=== PATIENT | female | born 1960 | race Caucasian/White ===

== ENCOUNTER 2020-01-16 13:46 | Emergency (ER) | payer OTHER ==
--- NOTE | 2020-01-16 14:00 | ERPHSYRPT ---
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 Patient noticed a sore throat last night and had her usual chronic cough that she has secondary to her lisinopril. However, the dizziness came on this morning and has persisted. Patient denies chest pain she denies shortness of breath. Patient had a recent cardiac work-up including a negative carotid artery Doppler study per patient. Her cardiac work-up was also negative per patient report. She denies head trauma. She is never had anything like this before. Patient has no abdominal pain no shortness of breath and has no urinary tract infection symptoms. Are no new medicines that she is taking Timing/Duration: today, yesterday Character of Deficits: none Deficits: no difficulties Baseline/Normal Cognition: alert oriented x 3 Current Cognition: alert oriented x 3 Baseline Gait: walks w/o assistance Associated Symptoms: denies symptoms Allergies/Adverse Reactions: No Known Drug Allergies Allergy (Verified 01/16/20 14:04) Home Medications: Amlodipine Besylate 1 tab PO HS 01/16/20 [History] Lisinopril 10 mg [Zestril 10 MG] 1 tab PO HS 01/16/20 [History] Pravastatin Sodium 1 tab PO DAILY 01/16/20 [History] Hx Tetanus, Diphtheria Vaccination/Date Given: Yes Hx Influenza Vaccination/Date Given: No Hx Pneumococcal Vaccination/Date Given: No Travel Risk - International Travel Have you traveled outside of the country in past 3 weeks: No Have you or anyone close to you been diagnosed with or: No Do your reside in a community with a known COVID-19 case?: Yes If Yes where:: [place] - Review of Systems Constitutional: No Symptoms Eyes: No Symptoms Ears, Nose, & Throat: No Symptoms Respiratory: No Symptoms Cardiac: No Symptoms Abdominal/Gastrointestinal: No Symptoms Genitourinary Symptoms: No Symptoms Musculoskeletal: No Symptoms Skin: No Symptoms Neurological: Dizziness Psychological: No Symptoms Endocrine: No Symptoms Hematologic/Lymphatic: No Symptoms Immunological/Allergic: No Symptoms All Other Systems: Reviewed and Negative - Past Medical History Pertinent Past Medical History: No Neurological History: No Pertinent History ENT History: No Pertinent History Cardiac History: Hypertension Respiratory History: No Pertinent History Endocrine Medical History: No Pertinent History Musculoskeletal History: Fractures, Osteoarthritis GI Medical History: Other (gastric bypass surgery) History: No Pertinent History Psycho-Social History: Depression Female Reproductive Disorders: Cervical Cancer Other Medical History: FX ALEJANDRA WRISTS WITH ORIF, CALCANEAL FX RIGHT REQUIRING ORIF, AND RECENTLY FX STERNUM AND THREE RIBS. - Past Surgical History Past Surgical History: Yes Neuro Surgical History: No Pertinent History Cardiac: No Pertinent History Respiratory: No Pertinent History Gastrointestinal: Cholecystectomy, Other Genitourinary: No Pertinent History Musculoskeletal: Orthopedic Surgery Female Surgical History: Hysterectomy Other Surgical History: HEEL,GASYRIC BYPASS - Social History Smoking Status: Never smoker Exposure to second hand smoke: No Drug Use: none Patient Lives Alone: No - Nursing Vital Signs Nursing Vital Signs: Initial Vital Signs Temperature 97.2 F 01/16/20 14:08 Pulse Rate 64 01/16/20 14:08 Respiratory Rate 18 01/16/20 14:08 Blood Pressure 154/87 01/16/20 14:08 O2 Sat by Pulse Oximetry 100 01/16/20 14:08 Pain Scale Pain Intensity 0 - Bennett Coma Scale Best Eye Response (Bennett): (4) open spontaneously Best Verbal Response ([place]): (5) oriented Best Motor Response (Bennett): (6) obeys commands [place] Total: 15 - Physical Exam General Appearance: no apparent distress, alert, anxiety Eye Exam: bilateral eye: normal inspection, PERRL, EOMI Ears, Nose, Throat Exam: normal ENT inspection, TMs normal, pharynx normal, moist mucous membranes Neck Exam: normal inspection, non-tender, supple, full range of motion Respiratory: normal breath sounds, lungs clear, airway intact, No chest tenderness, No respiratory distress Cardiovascular: regular rate/rhythm, normal heart sounds, normal peripheral pulses Gastrointestinal: soft, normal bowel sounds, No tenderness Pelvic Exam: not done Rectal Exam: not done Back Exam: normal inspection, normal range of motion, No CVA tenderness, No vertebral tenderness Extremity Exam: normal inspection, normal range of motion, pelvis stable Mental Status: alert, oriented x 3, cooperative clear coat sprayer Exam: normal hearing, normal speech, PERRL, tongue midline Coordination/Gait: normal finger to nose, normal gait, normal cerebellar function Motor/Sensory: no motor deficit, no sensory deficit Skin Exam: normal color, warm, dry SpO2 Interpretation: normal O2 Delivery: Room Air - Course Nursing assessment & vital signs reviewed: Yes EKG Interpreted by Me: RATE (65), Sinus Rhythm, NORMAL AXIS, NORMAL INTERVALS, NORMAL QRS, Other (No comparison EKG) Ordered Tests: Active Orders 24 hr Category Date Time Status EKG-ER Only STAT Care 01/16/20 14:41 Active IV Insertion STAT Care 01/16/20 14:41 Active HEAD WITHOUT CONTRAST [CT] Stat Exams 01/16/20 14:41 Completed CBC W DIFF Stat Lab 01/16/20 15:00 Completed CMP Stat Lab 01/16/20 15:00 Completed CULTURE,URINE Stat Lab 01/16/20 15:30 Received TROPONIN Q3H Lab 01/16/20 15:00 Completed TROPONIN Q3H Lab 01/16/20 17:45 Ordered TROPONIN Q3H Lab 01/16/20 20:45 Ordered TROPONIN Q3H Lab 01/16/20 23:45 Ordered TROPONIN Q3H Lab 01/17/20 02:45 Ordered UA W/RFX UR CULTURE Stat Lab 01/16/20 15:30 Completed Urine Triage Profile Stat Lab 01/16/20 14:42 Completed Medication Summary Discontinued Medications Generic Name Dose Route Start Last Admin Trade Name Freq PRN Reason Stop Dose Admin Sodium Chloride 1,000 mls @ 999 mls/hr 01/16/20 14:41 01/16/20 16:24 Sodium Chloride 0.9% 1000 Ml IV 01/16/20 15:41 Infused .Q1H1M STA Infusion Sodium Chloride Confirm 01/16/20 15:20 Sodium Chloride 0.9% 1000 Ml Administered 01/16/20 15:21 Dose 1,000 mls @ ud .ROUTE .STK-MED ONE Trimethoprim/Sulfamethoxazole 1 tab 01/16/20 16:30 Bactrim Ds Tablet PO 01/16/20 16:31 STAT STA Lab/Rad Data: Laboratory Result Diagrams 01/16/20 15:00 01/16/20 15:00 Laboratory Results 01/16/20 01/16/20 01/16/20 Range/Units Unknown 15:30 15:00 WBC (4.0-10.5) K/mm3 RBC (4.1-5.4) M/mm3 Hgb (12.0-16.0) gm/dl Hct (35-47) % MCV (78-100) fl MCH (26-32) pg MCHC (32-36) g/dl RDW (11.5-14.0) % Plt Count (150-450) K/mm3 MPV (7.5-11.0) fl Gran % (36.0-66.0) % Eos # (Auto) (0-0.5) Absolute Lymphs (auto) (1.0-4.6) Absolute Monos (auto) (0.0-1.3) Lymphocytes % (24.0-44.0) % Monocytes % (0.0-12.0) % Eosinophils % (0.00-5.0) % Basophils % (0.0-0.4) % Absolute Granulocytes (1.4-6.9) Basophils # (0-0.4) Sodium (137-145) mmol/L Potassium (3.5-5.1) mmol/L Chloride (98-107) mmol/L Carbon Dioxide (22-30) mmol/L Anion Gap (5-15) MEQ/L BUN (7-17) mg/dL Creatinine (0.52-1.04) mg/dL Estimated GFR ML/MIN Glucose (74-106) mg/dL Calcium (8.4-10.2) mg/dL Total Bilirubin (0.2-1.3) mg/dL AST (14-36) U/L ALT (0-35) U/L Alkaline Phosphatase (38-126) U/L Troponin I < 0.012 (0.000-0.034) ng/mL Serum Total Protein (6.3-8.2) g/dL Albumin (3.5-5.0) g/dL Urine Color STRAW (YELLOW) Urine Appearance CLEAR (CLEAR) Urine pH 6.0 (5-6) Ur Specific [place] 1.008 (1.005-1.025) Urine Protein NEGATIVE (Negative) Urine Ketones NEGATIVE (NEGATIVE) Urine Blood NEGATIVE (0-5) Jan/ul Urine Nitrite NEGATIVE (NEGATIVE) Urine Bilirubin NEGATIVE (NEGATIVE) Urine Urobilinogen NEGATIVE (0-1) mg/dL Ur Leukocyte Esterase MODERATE (NEGATIVE) Urine WBC (Auto) 6-10 (0-5) /HPF Urine RBC (Auto) NONE (0-2) /HPF U Epithel Cells (Auto) RARE (FEW) /HPF Urine Bacteria (Auto) RARE (NEGATIVE) /HPF Urine Mucus (Auto) SLIGHT (NEGATIVE) /HPF Urine Culture Reflexed YES (NO) Urine Glucose NEGATIVE (NEGATIVE) mg/dL Urine Opiates Level (NEGATIVE) Ur Methadone (NEGATIVE) Urine Barbiturates (NEGATIVE) Ur Phencyclidine (PCP) (NEGATIVE) Urine Amphetamine (NEGATIVE) U Benzodiazepine Level (NEGATIVE) Urine Cocaine (NEGATIVE) Urine Marijuana (THC) (NEGATIVE) Influenza Type A Ag NEGATIVE (NEGATIVE) Influenza Type B Ag NEGATIVE (NEGATIVE) RSV (PCR) NEGATIVE (Negative) 01/16/20 01/16/20 01/16/20 Range/Units 15:00 15:00 14:42 WBC 4.5 (4.0-10.5) K/mm3 RBC 4.03 L (4.1-5.4) M/mm3 Hgb 11.0 L (12.0-16.0) gm/dl Hct 34.1 L (35-47) % MCV 84.6 (78-100) fl MCH 27.3 (26-32) pg MCHC 32.3 (32-36) g/dl RDW 15.8 H (11.5-14.0) % Plt Count 157 (150-450) K/mm3 MPV 13.1 H (7.5-11.0) fl Gran % 59.1 (36.0-66.0) % Eos # (Auto) 0.11 (0-0.5) Absolute Lymphs (auto) 1.29 (1.0-4.6) Absolute Monos (auto) 0.44 (0.0-1.3) Lymphocytes % 28.4 (24.0-44.0) % Monocytes % 9.7 (0.0-12.0) % Eosinophils % 2.4 (0.00-5.0) % Basophils % 0.4 (0.0-0.4) % Absolute Granulocytes 2.68 (1.4-6.9) Basophils # 0.02 (0-0.4) Sodium 142 (137-145) mmol/L Potassium 4.2 (3.5-5.1) mmol/L Chloride 107 (98-107) mmol/L Carbon Dioxide 28 (22-30) mmol/L Anion Gap 12.0 (5-15) MEQ/L BUN 15 (7-17) mg/dL Creatinine 0.61 (0.52-1.04) mg/dL Estimated GFR > 60.0 ML/MIN Glucose 92 (74-106) mg/dL Calcium 9.1 (8.4-10.2) mg/dL Total Bilirubin 0.70 (0.2-1.3) mg/dL AST 51 H (14-36) U/L ALT 58 H (0-35) U/L Alkaline Phosphatase 128 H (38-126) U/L Troponin I (0.000-0.034) ng/mL Serum Total Protein 7.3 (6.3-8.2) g/dL Albumin 3.9 (3.5-5.0) g/dL Urine Color (YELLOW) Urine Appearance (CLEAR) Urine pH (5-6) Ur Specific [place] (1.005-1.025) Urine Protein (Negative) Urine Ketones (NEGATIVE) Urine Blood (0-5) Jan/ul Urine Nitrite (NEGATIVE) Urine Bilirubin (NEGATIVE) Urine Urobilinogen (0-1) mg/dL Ur Leukocyte Esterase (NEGATIVE) Urine WBC (Auto) (0-5) /HPF Urine RBC (Auto) (0-2) /HPF U Epithel Cells (Auto) (FEW) /HPF Urine Bacteria (Auto) (NEGATIVE) /HPF Urine Mucus (Auto) (NEGATIVE) /HPF Urine Culture Reflexed (NO) Urine Glucose (NEGATIVE) mg/dL Urine Opiates Level NEGATIVE (NEGATIVE) Ur Methadone NEGATIVE (NEGATIVE) Urine Barbiturates NEGATIVE (NEGATIVE) Ur Phencyclidine (PCP) NEGATIVE (NEGATIVE) Urine Amphetamine NEGATIVE (NEGATIVE) U Benzodiazepine Level NEGATIVE (NEGATIVE) Urine Cocaine NEGATIVE (NEGATIVE) Urine Marijuana (THC) NEGATIVE (NEGATIVE) Influenza Type A Ag (NEGATIVE) Influenza Type B Ag (NEGATIVE) RSV (PCR) (Negative) - Progress Progress: improved, re-examined Progress Note: 01/16/20 16:45 CAT scan of the head reveals no acute intracranial process. Counseled pt/family regarding: lab results, diagnosis, need for follow-up, rad results - Departure Departure Disposition: Home Clinical Impression: Dizziness, Urinary tract infection Condition: Stable Critical Care Time: No Referrals: VANDA PATEL CONSULTING PRACTICE MANAGER [Primary Care Provider] - Additional Instructions: Drink plenty of fluids. Follow-up with primary care physician for persistent symptoms. Take your medication as prescribed Prescriptions: Ciprofloxacin [Cipro 500 MG] 500 mg PO BID #14 tablet
[2020-01-16] MEDS ORDERED: Sodium Chloride 0.9% 1000 ML 1,000 ML IV STA (14:41)
[2020-01-16 15:08] LABS: Absolute Neutrophil Ct (ANC) 2.68 (1.4-6.9); BASOPHIL % 0.4 % (0.0-0.4); Basophil (Absolute #) 0.02 (0-0.4); Eosinophil % 2.4 % (0.00-5.0); Eosinophil (Absolute #) 0.11 (0-0.5); Hematocrit 34.1 % (35-47); Lymphocyte (Absolute #) 1.29 (1.0-4.6); Lymphocytes % 28.4 % (24.0-44.0); Mean Cell Volume 84.6 fl (78-100); Mean Corpuscular Hemoglobin 27.3 pg (26-32); Mean Corpuscular Hgb Concent. 32.3 g/dl (32-36); Mean Platelet Volume 13.1 fl (7.5-11.0); Monocyte (Absolute #) 0.44 (0.0-1.3); Monocytes % 9.7 % (0.0-12.0); Neutrophil % 59.1 % (36.0-66.0); Platelet Count 157 K/mm3 (150-450); Red Blood Count 4.03 M/mm3 (4.1-5.4); Red Cell Distribution Width 15.8 % (11.5-14.0); White Blood Count 4.5 K/mm3 (4.0-10.5)
[2020-01-16] MEDS ORDERED: Sodium Chloride 0.9% 1000 ML 1,000 ML ONE (15:20)
[2020-01-16 15:21] LABS: ALBUMIN 3.9 g/dL (3.5-5.0); ALKALINE PHOSPHATASE 128 U/L (38-126); BLOOD UREA NITROGEN 15 mg/dL (7-17); CHLORIDE 107 mmol/L (98-107); Calcium 9.1 mg/dL (8.4-10.2); Carbon Dioxide 28 mmol/L (22-30); Creatinine 1 0.61 mg/dL (0.52-1.04); Glucose 92 mg/dL (74-106); Potassium 4.2 mmol/L (3.5-5.1); SGOT/AST 51 U/L (14-36); SGPT/ALT 58 U/L (0-35); SODIUM 142 mmol/L (137-145); Total Protein 7.3 g/dL (6.3-8.2)
--- NOTE | 2020-01-16 15:26 | XRAY ---
Indication: Dizziness, blurry vision, and nausea. Multiple contiguous axial images obtained through the head without contrast. Comparison: None Normal appearing brain parenchyma, ventricles, and bony calvarium with incidental bilateral basal ganglia physiologic calcifications. Visualized paranasal sinuses and mastoid air cells are clear. Impression: Normal CT head without contrast exam.
[2020-01-16 15:46] LABS: INFLUENZA A NEGATIVE (NEGATIVE); INFLUENZA B NEGATIVE (NEGATIVE); RESPIRATORY SYNCTIAL VIRUS NEGATIVE (Negative)
[2020-01-16 16:02] LABS: Appearance CLEAR (CLEAR); Bacteria RARE /HPF (NEGATIVE); Bilirubin NEGATIVE (NEGATIVE); Blood NEGATIVE Ery/ul (0-5); Epithelial Cells RARE /HPF (FEW); Glucose NEGATIVE (NEGATIVE); Ketones NEGATIVE (NEGATIVE); Leukocyte Esterase MODERATE (NEGATIVE); Mucus SLIGHT /HPF (NEGATIVE); Nitrite NEGATIVE (NEGATIVE); Protein,Urine Dip NEGATIVE (Negative); Specific Gravity 1.008 (1.005-1.025); Urobilinogen NEGATIVE mg/dL (0-1)
[2020-01-16 16:04] LABS: Amphetamine,Urine NEGATIVE (NEGATIVE); Benzodiazepine,Urine NEGATIVE (NEGATIVE); Cocaine,Urine NEGATIVE (NEGATIVE); Methadone,Urine NEGATIVE (NEGATIVE); Opiate,Urine NEGATIVE (NEGATIVE); PCP,Urine NEGATIVE (NEGATIVE); THC,Urine NEGATIVE (NEGATIVE)
[2020-01-16 16:09] LABS: Barbiturate,Urine NEGATIVE (NEGATIVE)
[2020-01-16 16:17] VITALS: BP 132/84
[2020-01-16] MEDS ORDERED: BACTRIM DS TABLET PO STA (16:30)
[2020-01-16 17:01] VITALS: PULSE 71; O2SAT 98
[2020-01-16] MEDS ORDERED: BACTRIM DS TABLET PO ONE (17:02)
== END 2020-01-16 17:16 | disposition home or self-care (01) ==
LOC: ED 13:46
DX: R42 Dizziness and giddiness (principal); N39.0 Urinary tract infection, site not specified
CPT/HCPCS: 36000; 36415; 70450; 80053; 80307; 81001; 84484; 85025; 87086; 87631; 93005; 96360; 96374; 99284; A9270-GY

== ENCOUNTER 2020-07-01 09:40 | Emergency (ER) | payer OTHER ==
[2020-07-01 10:34] LABS: ANION GAP 5.9 MEQ/L (5-15); BLOOD UREA NITROGEN 13 mg/dL (7-17); CHLORIDE 109 mmol/L (98-107); Calcium 8.7 mg/dL (8.4-10.2); Carbon Dioxide 27 mmol/L (22-30); Creatinine 1 0.73 mg/dL (0.52-1.04); EST GLOMERULAR FILTRATION RATE > 60.0 ML/MIN; Glucose 95 mg/dL (74-106); Potassium 4.7 mmol/L (3.5-5.1); SODIUM 137 mmol/L (137-145)
--- NOTE | 2020-07-01 10:35 | ERPHSYRPT ---
- History of Present Illness Time Seen by Provider: 07/01/20 10:05 Source: patient Exam Limitations: no limitations Patient Subjective Stated Complaint: Pt was thrown from a horse on Tuesday and injured her left ribs and left shoulder Triage Nursing Assessment: Pt brought to the ER by her , hypertensive, rates pain as 9/10, hurts to breath, guarding ribs, unable to raise shoulder, no visible bruising Physician History: 60 yo wf fell off horse on 06/28/20 presents w L lateral thorax pain and L posterior thorax pain. Pain is rated 10 on scale. She denies HUGGINS/C,T, L-spine pain/Abdominal pain/Hip pain/Extremity pain. Occurred: other (06/28/20) Reason for Fall: fell from height (Fell off horse) Injuries/Pain Location: chest Loss of Consciousness: brief (seconds) Quality: aching, sharpness Severity of Pain-Max: severe Severity of Pain-Current: severe Modifying Factors: Improves With: movement Associated Symptoms (Fall): chest pain Allergies/Adverse Reactions: No Known Drug Allergies Allergy (Verified 07/01/20 09:51) Home Medications: Amlodipine Besylate 1 tab PO HS 01/16/20 [History] Lisinopril 10 mg [Zestril 10 MG] 1 tab PO HS 01/16/20 [History] Hx Tetanus, Diphtheria Vaccination/Date Given: Yes Hx Influenza Vaccination/Date Given: No Hx Pneumococcal Vaccination/Date Given: No Travel Risk - International Travel Have you traveled outside of the country in past 3 weeks: No - Coronavirus Screening Are you exhibiting any of the following symptoms?: No Close contact with a COVID-19 positive Pt in past 14-21 Days: No - Review of Systems Constitutional: No Symptoms Eyes: No Symptoms Ears, Nose, & Throat: No Symptoms Respiratory: No Symptoms Cardiac: No Symptoms Abdominal/Gastrointestinal: No Symptoms Genitourinary Symptoms: No Symptoms Musculoskeletal: No Symptoms Skin: No Symptoms Neurological: No Symptoms Psychological: No Symptoms Endocrine: No Symptoms Hematologic/Lymphatic: No Symptoms, Easy Bruising Immunological/Allergic: No Symptoms - Past Medical History Pertinent Past Medical History: Yes Neurological History: No Pertinent History ENT History: No Pertinent History Cardiac History: Hypertension Respiratory History: No Pertinent History Endocrine Medical History: No Pertinent History Musculoskeletal History: Fractures, Osteoarthritis GI Medical History: Other History: No Pertinent History Psycho-Social History: Depression Female Reproductive Disorders: Cervical Cancer Other Medical History: FX ALEJANDRA WRISTS WITH ORIF, CALCANEAL FX RIGHT REQUIRING ORIF, AND RECENTLY FX STERNUM AND THREE RIBS. - Past Surgical History Past Surgical History: Yes Neuro Surgical History: No Pertinent History Cardiac: No Pertinent History Respiratory: No Pertinent History Gastrointestinal: Cholecystectomy, Other Genitourinary: No Pertinent History Musculoskeletal: Orthopedic Surgery Female Surgical History: Hysterectomy Other Surgical History: HEEL,GASTRIC BYPASS - Social History Smoking Status: Never smoker Exposure to second hand smoke: No Drug Use: none Patient Lives Alone: No Significant Family History: no pertinent family hx - Female History Hx Now: No - Nursing Vital Signs Nursing Vital Signs: Initial Vital Signs Temperature 97.3 F 07/01/20 09:44 Pulse Rate 75 07/01/20 09:44 Blood Pressure 147/76 07/01/20 09:44 O2 Sat by Pulse Oximetry 100 07/01/20 09:44 Pain Scale Pain Intensity 7 - [place] Coma Score Best Eye Response ([place]): (4) open spontaneously Best Verbal Response ([place]): (5) oriented Best Motor Response ([place]): (6) obeys commands [place] Total: 15 - Physical Exam General Appearance: no apparent distress Head Injury: no evidence of injury Eye Exam: PERRL/EOMI, eyes nml inspection ENT Exam: airway nml, nml ext.inspection, No clear fluid (nose), No hemotympanum Neck Exam: supple, trachea midline, full range of motion (C-spine NTTP) Respiratory/Chest Exam: chest tenderness, normal breath sounds (L lateral- superior thorax TTP/L superior-posterior thorax ttp), No respiratory distress, No subcutaneous emphysema Cardiovascular Exam: normal heart sounds, regular rate/rhythm, normal peripheral pulses, No murmur Gastrointestinal Exam: soft, normal bowel sounds, No tenderness, No distention Back Exam: normal inspection (No T or L-spine TTP) Extremity Exam: normal inspection, normal range of motion, pelvis stable Peripheral Pulses: carotid (R): 2+, carotid (L): 2+ Neurologic Exam: alert, oriented x 3, cooperative, 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, normal mood/affect, nml cerebellar function, nml station & gait, sensation nml Skin Exam: normal color, warm, dry, No rash SpO2 Interpretation: normal SpO2: 100 O2 Delivery: Room Air - Course Nursing assessment & vital signs reviewed: Yes - CT Exams Chest CT Interpretation: Discussed w/radiologist (Nondisplaced L 3rd rib fx/Tiny PTX/Tiny Hemothorax/8mm HERBERT nodule) Ordered Tests: Active Orders 24 hr Category Date Time Status CHEST WITH CONTRAST [CT] Stat Exams 07/01/20 10:05 Completed BMP Stat Lab 07/01/20 10:23 Completed Lab/Rad Data: Laboratory Result Diagrams 07/01/20 10:23 Laboratory Results 07/01/20 Range/Units 10:23 Sodium 137 (137-145) mmol/L Potassium 4.7 (3.5-5.1) mmol/L Chloride 109 H (98-107) mmol/L Carbon Dioxide 27 (22-30) mmol/L Anion Gap 5.9 (5-15) MEQ/L BUN 13 (7-17) mg/dL Creatinine 0.73 (0.52-1.04) mg/dL Estimated GFR > 60.0 ML/MIN Glucose 95 (74-106) mg/dL Calcium 8.7 (8.4-10.2) mg/dL - Progress Progress Note: 07/01/20 12:29 Pain refused all pain meds and also Rx for pain meds Counseled pt/family regarding: rad results - Departure Departure Disposition: Home Clinical Impression: Rib fracture, small pneumothorax, small hemothorax, Pulmonary nodule Condition: Stable Critical Care Time: No Referrals: VANDA PATEL, FRYLINE ATTENDANT [Primary Care Provider] - Instructions: Rib Fracture (DC) Additional Instructions: Follow up with family MD in 2-3 days Motrin/Tylenol as needed for pain Return to ER for increasing pain/shortness of breath/temperature greater than 100.5 Forms: Work/School Release Form
[2020-07-01 12:10] VITALS: BP 141/87; PULSE 65
--- NOTE | 2020-07-01 12:15 | XRAY ---
Indication: Left upper chest pain following fall from horse. Multiple contiguous axial images obtained through the chest using 80 Isovue 370 contrast. Comparison: September 10, 2014. Lungs now demonstrates minimal peripheral bilateral atelectasis/scarring with tiny left effusion and a very tiny left pneumothorax. New indeterminant 8 mm left upper lobe noncalcified nodule (image 34). No infiltrate, consolidation, or effusion. Heart is not enlarged. Aorta is normal in course and caliber. No pathologic mediastinal/hilar lymphadenopathy. Bony thorax intact with minimal degenerative changes throughout the spine, nondisplaced left anterolateral 3rd rib fracture, and old left 4-8 rib fractures. Limited upper abdomen again demonstrates gastric bypass surgery and cholecystectomy. Impression: 1. New indeterminant 8mm left upper lobe noncalcified nodule. More recent outside comparison studies recommended if available. If not, recommend follow-up Fleischner guidelines. 2. Nondisplaced left 3rd rib fracture with very tiny pneumothorax. 3. Incidental abdominal postsurgical changes and chronic bony findings.
[2020-07-01 12:34] VITALS: O2SAT 100
== END 2020-07-01 12:46 | disposition home or self-care (01) ==
LOC: ED 09:40
DX: S22.32XA Fracture of one rib, left side, initial encounter for closed fracture (principal); V80.010A Animal-rider injured by fall from or being thrown from horse in noncollision accident, initial encounter; Y93.9 Activity, unspecified; Y92.9 Unspecified place or not applicable; J93.9 Pneumothorax, unspecified; R91.1 Solitary pulmonary nodule
CPT/HCPCS: 36415; 71260; 80048; 99284